=== PATIENT | female | born 1985 | race Hispanic/Latino ===

== ENCOUNTER 2020-11-29 00:31 | Inpatient (IN) ==
[2020-11-29 00:36] LABS: Hematocrit 37.4 % (37.0-47.0); Hemoglobin 12.3 gm/dL (12.5-16.0); Mean Cell Volume 89.7 fl (78-100); Mean Corpuscular Hemoglobin 29.5 pg (27-31); Mean Corpuscular Hgb Conc 32.9 g/dl (32-36); Mean Platelet Volume 10.3 fl (8-12.5); Neutrophil # 7.6 K/mm3 (1.3-6.0); Neutrophil % 71.2 % (42-75.0); Platelet Count 230 K/mm3 (150-450); Red Blood Count 4.17 M/mm3 (4.2-5.4); Red Cell Distribution Width 14.3 % (11.5-14.0); White Blood Count 10.6 K/mm3 (4.0-10.5)
[2020-11-29] MEDS ORDERED: OXYTOCIN/0.9 % SODIUM CHLORIDE 30 UNITS/500 ML BAG IV ONE ×2 (00:39→09:52)
[2020-11-29] MEDS ORDERED: INSULIN REGULAR, HUMAN 100 UNITS in NORMAL SALINE 100 ML IV PRN ×2 (00:39)
[2020-11-29] MEDS ORDERED: ONDANSETRON 4 MG TAB.RAPDIS PO PRN (00:39)
[2020-11-29] MEDS ORDERED: RINGER'S SOLUTION,LACTATED 1,000 ML IV PRN (00:39)
[2020-11-29] MEDS ORDERED: RINGER'S SOLUTION,LACTATED 1,000 ML IV ONE (00:39)
[2020-11-29 01:16] LABS: Cocaine Ur Negative (NEGATIVE); Urine Barbiturate Negative (NEGATIVE); Urine Benzodiazepines Negative (NEGATIVE); Urine Opiates Negative (NEGATIVE); Urine PCP Negative (NEGATIVE); Urine THC Negative (NEGATIVE)
[2020-11-29] MEDS ORDERED: BUPIVACAINE HCL/0.9 % NACL/PF 250 ML EP PRN (05:19)
[2020-11-29] MEDS ORDERED: NALOXONE HCL 1 MG/1 ML SYRG IV PRN (05:19)
[2020-11-29] MEDS ORDERED: ONDANSETRON HCL/PF 2 MG/ML VIAL IV PRN (05:19)
[2020-11-29] MEDS ORDERED: BUPIVACAINE HCL/PF 30 ML VIAL EP SCH (05:30)
--- NOTE | 2020-11-29 06:19 | ANES ---
Anesthesia Pre Procedure Eval Vitals/Labs: Last Vital Signs Temp 36.1 C 11/29/20 00:39 Pulse 94 11/29/20 00:39 Resp 18 11/29/20 00:39 BP 134/79 11/29/20 00:39 Pulse Ox 96 11/29/20 00:39 HOME MEDICATIONS albuterol sulfate 90 mcg/actuation aerosol inhaler 2 puff IH Q6H PRN 12/31/17 [Last Taken 11/28/20] prenat.vits,tg,dks-mwok-hlwci 1 tab PO DAILY 06/13/20 [Last Taken 11/28/20] acetone (urine) test See Rx Instructions .ROUTE .MEDSUPPLY #100 ea 07/02/20 [Last Taken Unknown] blood sugar diagnostic See Rx Instructions .ROUTE .MEDSUPPLY #100 ea 07/02/20 [Last Taken Unknown] blood-glucose meter See Rx Instructions .ROUTE .MEDSUPPLY #1 ea 07/02/20 [Last Taken Unknown] lancets 28 gauge See Rx Instructions .ROUTE .MEDSUPPLY #100 ea 07/02/20 [Last Taken Unknown] insulin syringe-needle U-100 1 mL 31 gauge x 5/16" See Rx Instructions .ROUTE .MEDSUPPLY #100 ea 07/13/20 [Last Taken Unknown] valacyclovir 500 mg tablet 500 mg PO BID 30 Days #60 tab 07/23/20 [Last Taken 11/28/20] sertraline 100 mg tablet 100 mg PO DAILY #30 tab 10/22/20 [Last Taken 11/28/20] insulin NPH isoph U-100 human 100 unit/mL subcutaneous suspension 34 unit SUBCUT QPM #10 ml 11/06/20 [Last Taken 11/28/20] docusate sodium 100 mg capsule 100 mg PO BID 11/15/20 [Last Taken 11/28/20] polyethylene glycol 3350 17 gram/dose oral powder 17 g PO DAILY PRN 11/15/20 [Last Taken 11/27/20] Alpha Lipoic Acid 1,100 mg PO DAILY 11/29/20 [Last Taken 11/28/20] Biotin 5,000 mg PO DAILY 11/29/20 [Last Taken 11/28/20] Fish Oil 1,000 mg Softgel 1,000 mg PO DAILY 11/29/20 [Last Taken 11/28/20] Magnesium Oxide 500 500 mg PO DAILY 11/29/20 [Last Taken 11/28/20] hydrOXYzine HCL 25 mg PO prn PRN 11/29/20 [Last Taken 11/28/20] Allergies/Adverse Reactions: Allergies Allergy/AdvReac Type Severity Reaction Status Date / Time rituximab [From Rituxan] Allergy Severe Anaphylaxis Verified 11/29/20 00:18 lamotrigine AdvReac Intermediate RASH Verified 11/29/20 00:18 - Planned Procedure Planned Procedure: Labor Epidural Medication List Reviewed:: Yes Allergies Verified: Yes Medical History (Last Reviewed 11/29/20 @ 01:19 by Suri Britt RN) Type II diabetes mellitus (Acute) Generalized anxiety disorder (Chronic) Hyperemesis gravidarum with carbohydrate depletion (Acute) HSV antigen DIF positive (Chronic) Major depression (Chronic) Onset Date: Unknown Oligohydramnios Onset Date: 11/12/20 Allergic rhinitis Onset Date: 04/25/14 with some possible asthma too. Anxiety Onset Date: 04/2012 Depression Onset Date: 05/16/14 Fibromyalgia Onset Date: ~2014 GERD (gastroesophageal reflux disease) Onset Date: Unknown Gestational diabetes Onset Date: 02/03/14 Headache Onset Date: Unknown Hip dysplasia Onset Date: ~[address] [facility] 05/25/17 " lots of pain in her right hip" Hypermobility syndrome Onset Date: ~09/2014 Insomnia Onset Date: 02/01/16 Obesity Onset Date: Unknown Rheumatoid arthritis Onset Date: ~1991 Anemia Onset Date: ~2016 2016 with pregnancies Asthma Onset Date: 2011 has albuterol inhaler (ProAir) as of 09/01/13. No hospitalizations due to Asthma. Blighted ovum Onset Date: 07/09/15 Bruxism Onset Date: 08/05/16 Chickenpox Onset Date: ~1993 Constipation Onset Date: Unknown Eczema Onset Date: ~2010 Fungal infection Onset Date: Unknown HSV (herpes simplex virus) infection (Resolved) Onset Date: Unknown lower lip of mouth Hemorrhoids Onset Date: Unknown Late care Onset Date: 05/25/17 Left breast lump Onset Date: 06/28/16 lateral area - seema-size lump present on palpation 8-9 o'clock position. - just off the aerola - smooth; fixed - about 1cm in size, Fibrocystic disease Migraine Onset Date: Unknown Molluscum contagiosum Onset Date: ~2012 Ovarian cyst Onset Date: Unknown Palpitations Onset Date: ~2010 Pelvic pain Onset Date: 03/26/15 Scarlet fever Onset Date: ~1990 Small bowel problem Onset Date: ~2009 laceration of bowel - presumed to be from constipation Threatened in early Onset Date: 07/09/15 Thrombocytopenia Onset Date: ~2007 ITP - Chemo tx (4 infusions at [facility]) last chemo 12/2010 Upper back pain Onset Date: 09/27/14 Vaginitis Onset Date: 03/26/15 Vitamin D insufficiency Onset Date: ~2010 Surgical History (Last Reviewed 11/29/20 @ 01:19 by Suri Britt, RASHIDA) Encounter for IUD insertion Onset Date: ~2008 H/O adenoidectomy Onset Date: ~10/2015 History of biopsy Onset Date: 09/08/14 moles on right breast and left upper back per office History of dilation and curettage Onset Date: ~05/2009, 2010 - SAB, dilation and evacuation History of knee surgery Onset Date: ~1990 graph on left knee when she was 5 year d/t arthritis History of tonsillectomy Onset Date: ~10/2015 [place] teeth extracted Onset Date: ~06/2006 Family History (Last Reviewed 11/29/20 @ 01:19 by Suri Britt RN) Brother Rheumatoid arthritis Cleft lip and cleft palate Heart disease Father Diabetes Rheumatoid arthritis Eczema Grandfather , maternal Diabetes Schizophrenia Grandfather , paternal Diabetes CVA (cerebral vascular accident) Hypertension Grandmother Hypertension Skin cancer H/O heart artery stent Arthritis maternal Hepatitis B Grandmother Hypertension Diabetes Rheumatoid arthritis Arrhythmia paternal Mother Hypertension Gestational diabetes Skin cancer Cervical cancer Anemia Osteoarthritis - Anesthesia Assessment and Plan ASA Class: PS, II Anesthesia Type Plan: Spinal
--- NOTE | 2020-11-29 06:35 | ANES ---
Anesthesia Procedure Note Procedure Note: ANESTHESIA PROCEDURE NOTE Date of Procedure: 11/29/2020. Time of procedure: 619. Performed by: Ramon Berumen CRNA Hand Therapist: None. Preprocedure diagnosis: Active labor. Post procedure diagnosis: Same. Procedure: Insertion of labor epidural. Indications: The patient is a 34-year-old female in active labor requesting labor epidural for pain management. Findings: See below. Details of the procedure: The patient was placed in a sitting position. DuraPrep as well as Betadine swabs X3 was applied to the patient's back. Patient was then draped in a sterile fashion. The superior spinous process of L3-4 interspace was easily palpated with very good anatomy. Lidocaine 1% was infiltrated to the skin and subcutaneous tissues at the level of the L3-4 interspace. The epidural space was very easily identified using a 18-gauge Tuohy needle with [id number] technique. Epidural catheter was inserted to a depth of 12 centimeters at skin. Negative test dose was elicited using 3 mL of 1.5% preservative-free lidocaine plus epinephrine 1 200,000. The epidural catheter was then taped and secured in place. A loading dose of 8 mL of 0.25% preservative-free bupivacaine was administered to the epidural catheter after negative aspiration for blood and CSF. EBL: Minimal. Fluids: N/A. Specimen: N/A. Post procedure condition: The patient tolerated the procedure well. No complications were noted. No spinal curvatures or anomalies were noted. Thank you for this consultation. Ramon Berumen CRNA
--- NOTE | 2020-11-29 06:35 | ANES ---
Post Anesthesia Assessment - Vital Signs Vitals: Last Vital Signs Temp 36.1 C 11/29/20 00:39 Pulse 94 11/29/20 00:39 Resp 18 11/29/20 00:39 BP 134/79 11/29/20 00:39 Pulse Ox 96 11/29/20 00:39 Airway Patency: Normal - Mental Status Level Of Consciousness: Awake - N/V Assessment Nausea/Vomiting Presence: None Dehydration:: No
--- NOTE | 2020-11-29 08:56 | HP ---
Chief Complaint - Chief Complaint Date of Service: 11/29/20 Time of Service: 08:44 Chief Complaint: induction of labor History of Present Illness: 34 yo at 39w0d admitted for induction of labor due to type II DM on insulin. This complicated by anemia, anxiety, asthma, depression, hip dysplasia, type II DM on insulin, migraines, morbid obesity, and h/o SAB x 4. Rh positive Rubella immune GBS negative Medical History (Last Reviewed 11/29/20 @ 08:48 by Ky Castillo DO) Type II diabetes mellitus (Acute) Generalized anxiety disorder (Chronic) Hyperemesis gravidarum with carbohydrate depletion (Acute) HSV antigen DIF positive (Chronic) Major depression (Chronic) Onset Date: Unknown Oligohydramnios Onset Date: 11/12/20 Allergic rhinitis Onset Date: 04/25/14 with some possible asthma too. Anxiety Onset Date: 04/2012 Depression Onset Date: 05/16/14 Fibromyalgia Onset Date: ~2014 GERD (gastroesophageal reflux disease) Onset Date: Unknown Gestational diabetes Onset Date: 02/03/14 Headache Onset Date: Unknown Hip dysplasia Onset Date: ~2010 diagnosed at [facility] 05/25/17 " lots of pain in her right hip" Hypermobility syndrome Onset Date: ~09/2014 Insomnia Onset Date: 02/01/16 Obesity Onset Date: Unknown Rheumatoid arthritis Onset Date: ~1991 Anemia Onset Date: ~2016 2017 with pregnancies Asthma Onset Date: 2011 has albuterol inhaler (ProAir) as of 09/01/13. No hospitalizations due to Asthma. Blighted ovum Onset Date: 07/09/15 Bruxism Onset Date: 08/05/16 Chickenpox Onset Date: ~1993 Constipation Onset Date: Unknown Eczema Onset Date: ~2010 Fungal infection Onset Date: Unknown HSV (herpes simplex virus) infection (Resolved) Onset Date: Unknown lower lip of mouth Hemorrhoids Onset Date: Unknown Late care Onset Date: 05/25/17 Left breast lump Onset Date: 06/28/16 lateral area - seema-size lump present on palpation 8-9 o'clock position. - just off the aerola - smooth; fixed - about 1cm in size, Fibrocystic disease Migraine Onset Date: Unknown Molluscum contagiosum Onset Date: ~2012 Ovarian cyst Onset Date: Unknown Palpitations Onset Date: ~2010 Pelvic pain Onset Date: 03/26/15 Scarlet fever Onset Date: ~1990 Small bowel problem Onset Date: ~2009 laceration of bowel - presumed to be from constipation Threatened in early Onset Date: 07/09/15 Thrombocytopenia Onset Date: ~2007 ITP - Chemo tx (4 infusions at [facility]) last chemo 12/2010 Upper back pain Onset Date: 09/27/14 Vaginitis Onset Date: 03/26/15 Vitamin D insufficiency Onset Date: ~2010 Surgical History: Surgical History (Last Reviewed 11/29/20 @ 08:49 by Ky Castillo DO) Encounter for IUD insertion Onset Date: ~2008 H/O adenoidectomy Onset Date: ~10/2015 History of biopsy Onset Date: 09/08/14 moles on right breast and left upper back per office History of dilation and curettage Onset Date: ~05/2009, 2010 - SAB, dilation and evacuation History of knee surgery Onset Date: ~1990 graph on left knee when she was 5 year d/t arthritis History of tonsillectomy Onset Date: ~10/2015 [place] teeth extracted Onset Date: ~06/2006 Family History: Family History (Last Reviewed 11/29/20 @ 08:49 by Ky Castillo DO) Brother Rheumatoid arthritis Cleft lip and cleft palate Heart disease Father Diabetes Rheumatoid arthritis Eczema Grandfather , maternal Diabetes Schizophrenia Grandfather , paternal Diabetes CVA (cerebral vascular accident) Hypertension Grandmother Hypertension Skin cancer H/O heart artery stent Arthritis maternal Hepatitis B Grandmother Hypertension Diabetes Rheumatoid arthritis Arrhythmia paternal Mother Hypertension Gestational diabetes Skin cancer Cervical cancer Anemia Osteoarthritis Social History: (Last Reviewed 11/29/20 @ 08:49 by Ky Castillo DO) Social History: Marital status: household members: spouse current occupational status: unemployed current occupation: Homemaker Highest level of school completed/degree received: some college, no degree Service: No Tobacco: Smoking Status: Never smoker Alcohol: alcohol intake: former alcohol intake frequency: a few times a month details: stopped with +UPT Substance Use: substance use type: does not use Dietary Habits: caffeine: No Exercise: Physical activity type: other frequency: 3-4 times per week Review Of Systems (GEN) - Review of Systems Generalized/Overall Review: Present: No Symptoms Reported EENTM: Present: No Symptoms Reported Respiratory: Present: No Symptoms Reported Cardiac: Present: No Symptoms Reported Abdominal: Present: No Symptoms Reported Genitourinary: Present: No Symptoms Reported Musculoskeletal: Present: Joint Pain - hip - chronic Neurological: Present: No Symptoms Reported Skin: Present: No Symptoms Reported Endocrine: Present: No Symptoms Reported Immunizations: IMMUNIZATION HX Immunizations Up to Date Yes History of Influenza Vaccine No Hx Pneumococcal Vaccination No Allergies/Adverse Reactions: Allergies Allergy/AdvReac Type Severity Reaction Status Date / Time rituximab [From Rituxan] Allergy Severe Anaphylaxis Verified 11/29/20 00:18 lamotrigine AdvReac Intermediate RASH Verified 11/29/20 00:18 Home Medications: HOME MEDICATIONS albuterol sulfate 90 mcg/actuation aerosol inhaler 2 puff IH Q6H PRN 12/31/17 [Last Taken 11/28/20] prenat.vits,tg,vrv-idgd-oitzf 1 tab PO DAILY 06/13/20 [Last Taken 11/28/20] acetone (urine) test See Rx Instructions .ROUTE .MEDSUPPLY #100 ea 07/02/20 [Last Taken Unknown] blood sugar diagnostic See Rx Instructions .ROUTE .MEDSUPPLY #100 ea 07/02/20 [Last Taken Unknown] blood-glucose meter See Rx Instructions .ROUTE .MEDSUPPLY #1 ea 07/02/20 [Last Taken Unknown] lancets 28 gauge See Rx Instructions .ROUTE .MEDSUPPLY #100 ea 07/02/20 [Last Taken Unknown] insulin syringe-needle U-100 1 mL 31 gauge x 5/16" See Rx Instructions .ROUTE .MEDSUPPLY #100 ea 07/13/20 [Last Taken Unknown] valacyclovir 500 mg tablet 500 mg PO BID 30 Days #60 tab 07/23/20 [Last Taken 11/28/20] sertraline 100 mg tablet 100 mg PO DAILY #30 tab 10/22/20 [Last Taken 11/28/20] insulin NPH isoph U-100 human 100 unit/mL subcutaneous suspension 34 unit SUBCUT QPM #10 ml 11/06/20 [Last Taken 11/28/20] docusate sodium 100 mg capsule 100 mg PO BID 11/15/20 [Last Taken 11/28/20] polyethylene glycol 3350 17 gram/dose oral powder 17 g PO DAILY PRN 11/15/20 [Last Taken 11/27/20] Alpha Lipoic Acid 1,100 mg PO DAILY 11/29/20 [Last Taken 11/28/20] Biotin 5,000 mg PO DAILY 11/29/20 [Last Taken 11/28/20] Fish Oil 1,000 mg Softgel 1,000 mg PO DAILY 11/29/20 [Last Taken 11/28/20] Magnesium Oxide 500 500 mg PO DAILY 11/29/20 [Last Taken 11/28/20] hydrOXYzine HCL 25 mg PO prn PRN 11/29/20 [Last Taken 11/28/20] Exam - Exam Vital Signs: Vital Signs - Last Taken Temp 36.1 C 11/29/20 00:39 Pulse 94 11/29/20 00:39 Resp 18 11/29/20 00:39 BP 134/79 11/29/20 00:39 Pulse Ox 96 11/29/20 00:39 Constitutional: Present: Alert, Oriented x3, Cooperative ENT Exam: Present: hearing grossly normal Breasts: Present: Exam deferred Respiratory: Present: lungs clear, no respiratory distress Cardiovascular/Chest: Present: regular rate, rhythm Abdomen: Present: soft, nontender, no rebound tenderness, other - gravid /Rectal: Present: Other - Cervix 3-4/60/-2 upon admission Extremity: Present: no calf tenderness, lower extremity edema Skin Exam: Present: normal color, warm/dry, no cyanosis Lymphatic: Present: no adenopathy Neurologic: Present: alert, normal mood/affect, oriented x 3 Appearance: Present: appropriate appearance, appropriate insight Eye contact: Present: cooperative, good eye contact Thoughts: Present: normal thought pattern, normal mood /affect Diagnostic Studies: Laboratory Results Urine Opiates Screen Negative (NEGATIVE) 11/29/20 00:20 Barbiturate Screen Negative (NEGATIVE) 11/29/20 00:20 Ur Phencyclidine Scrn Negative (NEGATIVE) 11/29/20 00:20 Urine Amphetamine Negative (NEGATIVE) 11/29/20 00:20 U Benzodiazepines Scrn Negative (NEGATIVE) 11/29/20 00:20 Urine Cocaine Screen Negative (NEGATIVE) 11/29/20 00:20 Urine Marijuana (THC) Negative (NEGATIVE) 11/29/20 00:20 Assessment/Plan - Assessment/Plan (1) Encounter for induction of labor Assessment: Admit for pitocin induction of labor. Epidural PRN. Ob insulin drip protocol. Problem: Acute (2) BMI 40.0-44.9, adult Problem: Acute (3) Type II diabetes mellitus Problem: Acute Qualifiers: Diabetes mellitus prison insulin use: without prison use Diabetes mellitus complication status: with hyperglycemia Qualified Code(s): E11.65 - Type 2 diabetes mellitus with hyperglycemia (4) Generalized anxiety disorder Problem: Chronic (5) HSV antigen DIF positive Problem: Chronic (6) Hip dysplasia Problem: Chronic
--- NOTE | 2020-11-29 08:58 | PN ---
Progess Note - Interim Date: 11/29/20 Time: 08:56 Narrative: 11/29/20 08:56 Patient comfortable with epidural Vital signs stable. Pitocin at 14 mu/min. FHT: 140 baseline, reassuring contractions q 2-3 min Cervix: 8/80/-1, AROM-clear at 0830 Impression: Intrauterine at 39 weeks induction of labor for type 2 diabetes. Plan: Anticipate normal spontaneous vaginal delivery soon.
--- NOTE | 2020-11-29 09:51 | OR ---
Operative Report - Dictated Report Narrative: Spontaneous vaginal delivery of viable female at 09 28 on 11/29/2020 with Apgars 8 and 9, weighing 3040 g. Cord clamping delayed approximately 90 seconds Placenta delivered complete, intact, with three vessel cord Estimated blood loss: 100 mL Anesthesia: Epidural Lacerations: None History for MU History for MU Definition: * The number of deliveries resulting in a live the patient experienced prior to current hospitalization * The previous delivery of live twins or any live multiple gestation is considered one live event. *If primagravida or nulliparous is documented select zero for the number of previous live births. Live Events: Live Events: 2
[2020-11-29] MEDS ORDERED: SENNOSIDES 8.6 MG TABLET PO PRN (09:52)
[2020-11-29] MEDS ORDERED: GLYCERIN/WITCH HAZEL LEAF 40 APPL BOX TP PRN (09:52)
[2020-11-29] MEDS ORDERED: ACETAMINOPHEN 325 MG TABLET PO PRN (09:52)
[2020-11-29] MEDS ORDERED: HYDROCORTISONE 30 APPL TUBE TP PRN (09:52)
[2020-11-29] MEDS ORDERED: BISACODYL 10 MG SUPP.RECT RC PRN (09:52)
[2020-11-29] MEDS ORDERED: BENZOCAINE/MENTHOL 81 SPRAY CAN TP PRN (09:52)
[2020-11-29] MEDS ORDERED: oxyCODONE HCL/ACETAMINOPHEN 1 TAB TABLET PO PRN (09:52)
[2020-11-29] MEDS ORDERED: ALBUTEROL SULFATE 2.5 MG/3 ML VIAL.NEB IH PRN (09:53)
[2020-11-29] MEDS: IBUPROFEN 800 MG TABLET PO PRN ×2 (17:37→23:39)
[2020-11-29] MEDS: DOCUSATE SODIUM 100 MG CAPSULE PO SCH (20:47)
[2020-11-29] MEDS ORDERED: DOCUSATE SODIUM 100 MG CAPSULE PO SCH (21:00)
[2020-11-30] MEDS: DOCUSATE SODIUM 100 MG CAPSULE PO SCH ×2 (10:45→21:23)
[2020-11-30] MEDS: MAGNESIUM OXIDE 400 MG TABLET PO SCH (10:45)
[2020-11-30] MEDS: SERTRALINE HCL 100 MG TABLET PO SCH (10:45)
[2020-11-30] MEDS: BIOTIN PO SCH (10:46)
[2020-11-30] MEDS: ALPHA LIPOIC ACID PO SCH (10:46)
[2020-11-30] MEDS: PRENATAL VITS96/IRON FUM/FOLIC 1 TAB TABLET PO SCH (10:46)
[2020-11-30] MEDS: FISH OIL 1000 MG PO SCH (10:46)
--- NOTE | 2020-11-30 12:04 | PN ---
Subjective - Date and Time Seen Date: 11/30/20 Time: 12:01 Objective - Vitals Vitals: Last Vital Signs Temp 35.8 C L 11/30/20 09:22 Pulse 85 11/30/20 09:22 Resp 16 11/30/20 09:22 BP 109/60 11/30/20 09:22 Pulse Ox 96 11/30/20 09:22 Patient denies complaints. Breast-feeding. Fasting blood sugar 102 1 hour postprandial blood sugar 137 lochia wnl Abdomen - soft, nontender Uterus -firm, at umbilicus - 1 No calf tenderness Impression: day #1 - s/p spontaneous vaginal delivery. Type 2 diabetes-fasting blood sugar slightly elevated. Plan: Continue routine care. Recheck fasting blood sugar in a.m. Assessment/Plan - Problems/Diagnosis (1) Encounter for induction of labor Problem: Acute (2) BMI 40.0-44.9, adult Problem: Acute (3) Type II diabetes mellitus Problem: Acute Qualifiers: Diabetes mellitus group home insulin use: without group home use Diabetes mellitus complication status: with hyperglycemia Qualified Code(s): E11.65 - Type 2 diabetes mellitus with hyperglycemia (4) Generalized anxiety disorder Problem: Chronic (5) HSV antigen DIF positive Problem: Chronic (6) Hip dysplasia Problem: Chronic
[2020-11-30] MEDS: IBUPROFEN 800 MG TABLET PO PRN ×2 (12:13→21:23)
[2020-12-01] MEDS: IBUPROFEN 800 MG TABLET PO PRN (05:30)
[2020-12-01] MEDS: PRENATAL VITS96/IRON FUM/FOLIC 1 TAB TABLET PO SCH (09:06)
[2020-12-01] MEDS: MAGNESIUM OXIDE 400 MG TABLET PO SCH (09:06)
[2020-12-01] MEDS: DOCUSATE SODIUM 100 MG CAPSULE PO SCH (09:06)
[2020-12-01] MEDS: SERTRALINE HCL 100 MG TABLET PO SCH (09:06)
[2020-12-01] MEDS: BIOTIN PO SCH (09:07)
[2020-12-01] MEDS: FISH OIL 1000 MG PO SCH (09:07)
[2020-12-01] MEDS: ALPHA LIPOIC ACID PO SCH (09:07)
[2020-12-01 10:28] VITALS: BP 129/75
--- NOTE | 2020-12-01 10:31 | PN ---
Subjective - Date and Time Seen Date: 12/01/20 Time: 10:24 Objective - Vitals Vitals: Last Vital Signs Temp 36.3 C 12/01/20 07:26 Pulse 84 12/01/20 07:26 Resp 18 12/01/20 07:26 BP 148/87 H 12/01/20 07:26 Pulse Ox 98 12/01/20 07:26 Patient denies complaints. Breast-feeding. Denies headache, visual changes, or epigastric pain. Repeat BP 129/72 Lochia wnl Abdomen - soft, nontender Uterus -firm, at umbilicus - 2 No calf tenderness Impression: day #2 - s/p spontaneous vaginal delivery. Type 2 diabetes-blood sugars well controlled. Plan: Routine discharge instructions. Continue ADA diet and monitoring blood sugars as directed by her family physician. Assessment/Plan - Problems/Diagnosis (1) Encounter for induction of labor Problem: Acute (2) BMI 40.0-44.9, adult Problem: Acute (3) Type II diabetes mellitus Problem: Acute Qualifiers: Diabetes mellitus mcc insulin use: without inspecting machine adjuster use Diabetes mellitus complication status: with hyperglycemia Qualified Code(s): E11.65 - Type 2 diabetes mellitus with hyperglycemia (4) Generalized anxiety disorder Problem: Chronic (5) HSV antigen DIF positive Problem: Chronic (6) Hip dysplasia Problem: Chronic
--- NOTE | 2020-12-01 10:35 | DS ---
OB Discharge Summary (1) Encounter for induction of labor Status: Acute (2) BMI 40.0-44.9, adult Status: Acute (3) Type II diabetes mellitus Status: Acute Qualifiers: Diabetes mellitus correction insulin use: without correction use Diabetes mellitus complication status: with hyperglycemia Qualified Code(s): E11.65 - Type 2 diabetes mellitus with hyperglycemia (4) Generalized anxiety disorder Status: Chronic (5) HSV antigen DIF positive Status: Chronic (6) Hip dysplasia Status: Chronic Delivery Date: 11/29/20 Delivery Time: 09:28 :: 8 Para:: 3 Gestational weeks:: 39 Gestational days:: 0 Intrapartum Procedures: Spontaneous Vaginal Delivery, Anesthesia - Epidural /OP Complications: No Complications Discharge Diagnosis: Term -Delivered, Rubella Immune, Other - Discharge Information Date of Discharge: 12/01/20 Hospital Course: 34-year-old 8 now para 3 admitted at 39 weeks for induction of labor due to type 2 diabetes. Patient's labor, delivery, and course were uncomplicated. Discharge Location: Home Disposition: Home self-care Condition: Good Referrals: Terrie Hernandez, PAC [Primary Care Provider] - Activity on Discharge:: Activity as tolerated Discharge Diet: General/regular food Additional Patient Instructions (free text): leonila Monterroso follow up appointment is December 25 at 1:[address] Castillo. Genny follow up appointment is ThursdayDecember [address] Pandey. Nurse Phuong every 2 to 3 hours and on demand. Lay her on her back to sleep, in her own crib. No extra pillows, blankets or stuffed animals. Rest when she rest. weight - 6 lb 11.2 oz Discharge weight - 6 lb 2.4 oz Blood type B+ Congratulations on your new addition. Please don't hesitate to call with any questions or concerns. [facility] - [phone], [facility] -[phone]. Prescriptions (Any new or edited meds): Ibuprofen [Motrin] 200 - 800 mg PO Q6H PRN #100 tab PRN Reason: Pain Complete Home Medications List: Complete Home Medication List: albuterol sulfate 90 mcg/actuation aerosol inhaler 2 puff IH Q6H PRN 12/31/17 prenat.vits,tg,qdb-iklp-hpeoa 1 tab PO DAILY 06/13/20 blood sugar diagnostic See Rx Instructions .ROUTE .MEDSUPPLY #100 ea 07/02/20 blood-glucose meter See Rx Instructions .ROUTE .MEDSUPPLY #1 ea 07/02/20 lancets 28 gauge See Rx Instructions .ROUTE .MEDSUPPLY #100 ea 07/02/20 sertraline 100 mg tablet 100 mg PO DAILY #30 tab 10/22/20 docusate sodium 100 mg capsule 100 mg PO BID 11/15/20 polyethylene glycol 3350 17 gram/dose oral powder 17 g PO DAILY PRN 11/15/20 Alpha Lipoic Acid 1,100 mg PO DAILY 11/29/20 Biotin 5,000 mg PO DAILY 11/29/20 Fish Oil 1,000 mg Softgel 1,000 mg PO DAILY 11/29/20 Ibuprofen [Motrin] 200 - 800 mg PO Q6H PRN #100 tab 11/29/20 Magnesium Oxide 500 500 mg PO DAILY 11/29/20 - Plan Discharge to:: Home Follow up in office in:: 2 weeks - [place] Information Weight (Grams): 3,040 Sex: Female Score 1 min: 8 Score 5 min: 9 Complications: None Other Complications: delivered without physicial at bedside.
== END 2020-12-01 11:30 | disposition home or self-care (01) | DRG 807 ==
LOC: OB 00:31
PROVIDERS: ADMIT Obstetrics & Gynecology; ATTEND Obstetrics & Gynecology